=== PATIENT | female | born 1975 | race Caucasian/White ===

== ENCOUNTER 2018-03-31 10:16 | Emergency (ER) | payer MEDICAID ==
[~2018-03-31] VITALS: Ht 157.5 cm; Wt 82.3 kg
[2018-03-31 11:33] LABS: BASOPHILS % 0.5 % (0.0-2.0); EOSINOPHILS % 5.6 % (0.0-5.0); HEMATOCRIT. 37.6 % (36.0-48.0); HEMOGLOBIN. 12.6 g/dL (12.0-16.0); LYMPHOCYTES % 23.2 % (20.0-50.0); MEAN CORPUSCULAR HEMOGLOBIN 27.8 pg (28.0-32.0); MEAN CORPUSCULAR VOLUME 82.9 fL (81.0-99.0); MEAN PLATELET VOLUME 7.9 fl (7.4-10.4); MONOCYTES % 6.3 % (2.0-8.0); NEUTROPHILS % 64.4 % (40.0-76.0); PLATELET 351 x1000/uL (130-400); RED BLOOD CELL COUNT 4.54 mill/uL (4.2-5.4); RED CELL DISTRIBUTION WIDTH 14.3 % (11.6-14.6)
[2018-03-31 11:34] LABS: CHLORIDE 105 mEq/L (98-107)
[2018-03-31 11:41] LABS: D-DIMER 0.3 mg/L FEU (<0.50); PROTHROMBIN TIME 10.3 sec (9.4-11.6)
[2018-03-31 15:43] VITALS: BP 124/68
== END 2018-03-31 15:44 | disposition home or self-care (01) ==
LOC: ER 10:16
DX: M79.89 Other specified soft tissue disorders (principal); R00.2 Palpitations; F17.200 Nicotine dependence, unspecified, uncomplicated
CPT/HCPCS: 36415; 71045; 80053; 83880; 84484; 85025; 85379; 85610; 93005; 93970; 99285; Z7610

== ENCOUNTER 2019-08-27 14:20 | Inpatient (IN) | payer MEDICAID ==
[~2019-08-27] VITALS: Ht 160 cm; Wt 83.9 kg
[2019-08-27] MEDS ORDERED: ONDANSETRON HCL 4MG/2ML INJ IV STA (22:22)
[2019-08-27] MEDS ORDERED: KETOROLAC 30MG/ML VIAL IV STA (22:22)
[2019-08-27] MEDS ORDERED: PIPERACILLIN/TAZ 3.375G PREMIX 50 ML IV ONE (22:30)
[2019-08-27] MEDS ORDERED: SODIUM CHLORIDE 0.9% 1000ML BAG (SEPSIS BOLUS) IV ONE (22:30)
[2019-08-27] MEDS ORDERED: VANCOMYCIN 1 G PREMIX 200 ML IV ONE (22:30)
[2019-08-27 23:16] LABS: BASOPHILS % 0.5 % (0.0-2.0); EOSINOPHILS % 0.8 % (0.0-5.0); HEMATOCRIT. 43.3 % (36.0-48.0); HEMOGLOBIN. 14.1 g/dL (12.0-16.0); LYMPHOCYTES % 14.8 % (20.0-50.0); MEAN CORPUSCULAR HEMOGLOBIN 27.1 pg (28.0-32.0); MEAN PLATELET VOLUME 7.3 fl (7.4-10.4); NEUTROPHILS % 81.9 % (40.0-76.0); PLATELET 346 x1000/uL (130-400); RED BLOOD CELL COUNT 5.22 mill/uL (4.2-5.4); RED CELL DISTRIBUTION WIDTH 13.4 % (11.6-14.6)
[2019-08-27 23:22] LABS: CHLORIDE 102 mEq/L (98-107)
[2019-08-27 23:23] LABS: PROTHROMBIN TIME 10.5 sec (9.6-11.0)
[2019-08-28 04:07] LABS: CLARITY URINE CLOUDY (CLEAR); COLOR URINE YELLOW (YELLOW); KETONES URINE NEGATIVE (NEGATIVE); LEUKOCYTE ESTERASE URINE 2+ (NEGATIVE); NITRITE URINE NEGATIVE (NEGATIVE); OCCULT BLOOD URINE NEGATIVE (NEGATIVE); PROTEIN URINE TRACE (NEGATIVE); SPECIFIC GRAVITY URINE 1.021 (1.005-1.030)
[2019-08-28 08:38] VITALS: BP 113/71
[2019-08-28 09:07] VITALS: BP 113/71
[2019-08-28] MEDS ORDERED: SYN200 MT (10:49)
[2019-08-28] MEDS ORDERED: SYN175 MT (10:49)
[2019-08-28] MEDS ORDERED: IPRATROPIUM/ALBUTEROL 0.5-3(2.5)MG/3ML NEB HHN PRN (11:15)
[2019-08-28] MEDS ORDERED: CEFAZOLIN 1000MG PREMIX 50 ML IV SCH ×2 (11:15→14:00)
[2019-08-28] MEDS ORDERED: CLONIDINE 0.1MG TABLET PO PRN (11:15)
[2019-08-28] MEDS ORDERED: HYDROCODONE/ACETAMINOPHEN 5/325MG TABLET PO PRN (11:15)
[2019-08-28] MEDS ORDERED: ACETAMINOPHEN 325MG TABLET PO PRN (11:15)
[2019-08-28] MEDS ORDERED: GUAIFENESIN 200MG/10ML SUGAR FREE UDC PO PRN (11:15)
[2019-08-28] MEDS ORDERED: LORAZEPAM 0.5MG TABLET PO PRN (11:15)
[2019-08-28] MEDS ORDERED: DOCUSATE SODIUM 100MG CAPSULE PO PRN (11:15)
[2019-08-28] MEDS ORDERED: ONDANSETRON HCL 4MG/2ML INJ IV PRN (11:15)
[2019-08-28] MEDS: SODIUM CHLORIDE 0.9% 1,000 ML IV SCH (11:45)
[2019-08-28] MEDS: ENOXAPARIN 40MG/0.4ML SYR SUBCUT SCH (11:47)
[2019-08-28 12:00] VITALS: BP 112/71
[2019-08-28] MEDS ORDERED: POTASSIUM CHLORIDE 20MEQ TABLET SR PO SCH (12:00)
[2019-08-28 14:47] LABS: *COCAINE SCREEN URINE NEGATIVE (NEGATIVE)
[2019-08-28 14:48] LABS: OPIATES URINE SCREEN NEGATIVE (NEGATIVE); PHENCYCLIDINE URINE SCREEN NEGATIVE (NEGATIVE)
[2019-08-28 14:49] LABS: METHADONE URINE SCREEN NEGATIVE (NEGATIVE)
[2019-08-28 14:54] LABS: *BENZODIAZEPINES SCREEN URINE NEGATIVE (NEGATIVE)
[2019-08-28 14:55] LABS: *BARBITURATES SCREEN URINE NEGATIVE (NEGATIVE)
[2019-08-28 15:31] LABS: *AMPHETAMINES SCREEN URINE PRESUMTIVE POSITIVE (NEGATIVE); CANNABINOID URINE SCREEN PRESUMTIVE POSITIVE (NEGATIVE)
[2019-08-28 16:00] VITALS: BP 118/75
[2019-08-28 20:00] VITALS: BP 110/70
[2019-08-28] MEDS: VANCOMYCIN 1250MG in DEXTROSE 5% WATER 250ML IV SCH (20:46)
[2019-08-28] MEDS: MORPHINE SULFATE 2 MG/ML CPJ (NOT FOR IM USE) IV PRN (21:02)
[2019-08-29] VITALS: BP 110/69
[2019-08-29 04:00] VITALS: BP 113/70
[2019-08-29] MEDS: VANCOMYCIN 1250MG in DEXTROSE 5% WATER 250ML IV SCH (05:25)
[2019-08-29 08:00] VITALS: BP 106/71
[2019-08-29] MEDS: ENOXAPARIN 40MG/0.4ML SYR SUBCUT SCH (08:43)
[2019-08-29 11:18] LABS: BASOPHILS % 0.3 % (0.0-2.0); EOSINOPHILS % 3.2 % (0.0-5.0); HEMATOCRIT. 40.5 % (36.0-48.0); LYMPHOCYTES % 11.8 % (20.0-50.0); MEAN CORPUSCULAR HEMOGLOBIN 26.6 pg (28.0-32.0); MEAN CORPUSCULAR VOLUME 82.5 fL (81.0-99.0); MEAN PLATELET VOLUME 7.4 fl (7.4-10.4); MONOCYTES % 4.2 % (2.0-8.0); NEUTROPHILS % 80.5 % (40.0-76.0); PLATELET 346 x1000/uL (130-400); RED BLOOD CELL COUNT 4.91 mill/uL (4.2-5.4); RED CELL DISTRIBUTION WIDTH 13.6 % (11.6-14.6)
[2019-08-29 12:00] VITALS: BP 111/71
[2019-08-29] MEDS: SODIUM CHLORIDE 0.9% 1,000 ML IV SCH (12:50)
[2019-08-29] MEDS ORDERED: NICOTINE 7MG PATCH TD SCH (13:00)
[2019-08-29 13:17] LABS: HEPATITIS B SURFACE ANTIGEN NEGATIVE
[2019-08-29 13:45] LABS: HEPATITIS A AB IGM NEGATIVE (NEGATIVE)
[2019-08-29] MEDS: LEVOTHYROXINE SODIUM 175MCG TABLET PO SCH (15:37)
[2019-08-29] MEDS: NICOTINE 7MG PATCH TD SCH (15:37)
[2019-08-29] MEDS: MORPHINE SULFATE 2 MG/ML CPJ (NOT FOR IM USE) IV PRN (15:38)
[2019-08-29 16:00] VITALS: BP 116/64
[2019-08-29 16:31] LABS: BASOPHILS % 0.3 % (0.0-2.0); EOSINOPHILS % 4.4 % (0.0-5.0); HEMOGLOBIN. 12.7 g/dL (12.0-16.0); LYMPHOCYTES % 15.3 % (20.0-50.0); MEAN CORPUSCULAR HEMOGLOBIN 26.9 pg (28.0-32.0); MEAN CORPUSCULAR VOLUME 82.6 fL (81.0-99.0); MEAN PLATELET VOLUME 7.8 fl (7.4-10.4); MONOCYTES % 5.7 % (2.0-8.0); NEUTROPHILS % 74.3 % (40.0-76.0); PLATELET 340 x1000/uL (130-400); RED BLOOD CELL COUNT 4.72 mill/uL (4.2-5.4); RED CELL DISTRIBUTION WIDTH 13.2 % (11.6-14.6)
[2019-08-29 17:08] LABS: HCG SCREEN NEGATIVE
[2019-08-29 20:00] VITALS: BP 140/71
[2019-08-29] MEDS ORDERED: VANCOMYCIN 1250MG in DEXTROSE 5% WATER 250ML IV SCH (21:00)
[2019-08-30] VITALS: BP 114/74
[2019-08-30 04:00] VITALS: BP 110/77
[2019-08-30] MEDS: SODIUM CHLORIDE 0.9% 1,000 ML IV SCH (04:30)
[2019-08-30 06:11] LABS: HIV SCREEN 4G Non Reactive (Non Reactive)
[2019-08-30 08:00] VITALS: BP 112/74
[2019-08-30] MEDS: ENOXAPARIN 40MG/0.4ML SYR SUBCUT SCH (11:04)
[2019-08-30] MEDS: LEVOTHYROXINE SODIUM 175MCG TABLET PO SCH (11:05)
[2019-08-30] MEDS: NICOTINE 7MG PATCH TD SCH (11:05)
[2019-08-30 12:00] VITALS: BP 109/72
[2019-08-30] MEDS: MORPHINE SULFATE 2 MG/ML CPJ (NOT FOR IM USE) IV PRN (13:54)
[2019-08-30 16:00] VITALS: BP 119/79
[2019-08-30] MEDS: VANCOMYCIN 1 G PREMIX 200 ML IV SCH (19:00)
[2019-08-30 20:00] VITALS: BP 110/76
[2019-08-31] VITALS: BP 111/73
[2019-08-31 04:00] VITALS: BP 109/75
[2019-08-31 08:00] VITALS: BP 116/77
[2019-08-31 08:06] LABS: BASOPHILS % 0.5 % (0.0-2.0); HEMATOCRIT. 37.9 % (36.0-48.0); HEMOGLOBIN. 12.5 g/dL (12.0-16.0); LYMPHOCYTES % 20.2 % (20.0-50.0); MEAN CORPUSCULAR HEMOGLOBIN 26.9 pg (28.0-32.0); MEAN CORPUSCULAR VOLUME 81.2 fL (81.0-99.0); MEAN PLATELET VOLUME 7.5 fl (7.4-10.4); MONOCYTES % 7.4 % (2.0-8.0); NEUTROPHILS % 67.9 % (40.0-76.0); PLATELET 378 x1000/uL (130-400); RED BLOOD CELL COUNT 4.66 mill/uL (4.2-5.4); RED CELL DISTRIBUTION WIDTH 13.1 % (11.6-14.6)
[2019-08-31] MEDS: ENOXAPARIN 40MG/0.4ML SYR SUBCUT SCH (09:50)
[2019-08-31] MEDS: LEVOTHYROXINE SODIUM 175MCG TABLET PO SCH (09:50)
[2019-08-31] MEDS: NICOTINE 7MG PATCH TD SCH (09:50)
[2019-08-31 12:00] VITALS: BP 122/77
[2019-08-31] MEDS ORDERED: DOXY100C2 MT (13:11)
[2019-08-31] MEDS ORDERED: AMOX-424 MT (13:11)
[2019-08-31] MEDS: SODIUM CHLORIDE 0.9% 1,000 ML IV SCH (13:45)
[2019-08-31] MEDS: VANCOMYCIN 1 G PREMIX 200 ML IV SCH (13:45)
[2019-08-31 15:08] VITALS: BP 122/77
[2019-08-31 16:00] VITALS: BP 134/84
== END 2019-08-31 15:58 | disposition home or self-care (01) | DRG 720 ==
LOC: ER 16:42 → EDBEDREQ 22:28 → EDBEDREQSVC 08-28 00:37 → EDBEDREQTM 08-28 00:37 → EDBEDREQDT 08-28 00:37 → EDBEDREQ 08-28 00:37 → ENRESERV 08-28 07:38 → 6EST 08-28 08:20
PROVIDERS: ADMIT Internal Medicine; ATTEND Internal Medicine
DX: A41.9 Sepsis, unspecified organism (principal); D70.9 Neutropenia, unspecified; L02.415 Cutaneous abscess of right lower limb; L03.115 Cellulitis of right lower limb; E07.9 Disorder of thyroid, unspecified; E66.9 Obesity, unspecified; E87.6 Hypokalemia; F15.10 Other stimulant abuse, uncomplicated; F12.10 Cannabis abuse, uncomplicated; F17.200 Nicotine dependence, unspecified, uncomplicated; K80.20 Calculus of gallbladder without cholecystitis without obstruction; Z79.2 Long term (current) use of antibiotics; Z79.899 Other long term (current) drug therapy; Z68.32 Body mass index [BMI] 32.0-32.9, adult
CPT/HCPCS: 36415; 71045; 73700; 74021; 76700; 80048; 80053; 80061; 80202; 80305; 81003; 83036; 83605; 84145; 84484; 84703; 85025; 85651; 86141; 86705; 86709; 86803; 87340; 87389; 93005; 96365; 96366; 96375; 99291; J0690; J1650; J1885; J2270; J2405; J2543; J3370; J7030; J7060

== ENCOUNTER 2020-04-17 23:45 | Emergency (ER) | payer MEDICAID ==
[~2020-04-17] VITALS: Ht 162.6 cm; Wt 85.6 kg
[~2020-04-17 23:45] MED LIST: AMOX-424 MT; DOXY100C2 MT; SYN175 MT; SYN200 MT
[2020-04-18 02:17] VITALS: BP 142/85
== END 2020-04-18 02:18 | disposition home or self-care (01) ==
LOC: ER 23:45
DX: L03.115 Cellulitis of right lower limb (principal); E05.90 Thyrotoxicosis, unspecified without thyrotoxic crisis or storm; E05.00 Thyrotoxicosis with diffuse goiter without thyrotoxic crisis or storm
CPT/HCPCS: 99281

== ENCOUNTER 2021-11-02 23:32 | Emergency (ER) | payer MEDICAID, OTHER ==
[~2021-11-02] VITALS: Ht 154.9 cm; Wt 84.0 kg
[~2021-11-02 23:32] MED LIST changes: -DOXY100C2 MT; +DOXY100C5 MT
[2021-11-03 02:43] LABS: BASOPHILS % 0.6 % (0.0-2.0); HEMATOCRIT. 39.3 % (36.0-48.0); HEMOGLOBIN. 13.4 g/dL (12.0-16.0); LYMPHOCYTES % 32.6 % (20.0-50.0); MEAN CORPUSCULAR HEMOGLOBIN 27.4 pg (28.0-32.0); MEAN CORPUSCULAR VOLUME 80.8 fL (81.0-99.0); MEAN PLATELET VOLUME 7.6 fl (7.4-10.4); MONOCYTES % 6.3 % (2.0-8.0); NEUTROPHILS % 53.5 % (40.0-76.0); PLATELET 372 x1000/uL (130-400); RED BLOOD CELL COUNT 4.87 mill/uL (4.2-5.4)
[2021-11-03 02:48] LABS: CHLORIDE 104 mEq/L (98-107)
[2021-11-03 03:15] VITALS: BP 145/90
[2021-11-03] MEDS ORDERED: IBUP-2028 MT (03:42)
[2021-11-03] MEDS ORDERED: BENZ-16 MT (03:42)
== END 2021-11-03 03:59 | disposition home or self-care (01) ==
LOC: ER 23:32
DX: R09.1 Pleurisy (principal); R07.89 Other chest pain; E05.90 Thyrotoxicosis, unspecified without thyrotoxic crisis or storm; Z86.16 Personal history of COVID-19
CPT/HCPCS: 36415; 71045; 80048; 84484; 85025; 93005; 99285

== ENCOUNTER 2021-11-28 19:52 | Inpatient (IN) | payer OTHER ==
[~2021-11-28] VITALS: Ht 154.9 cm; Wt 82.6 kg
[~2021-11-28 19:52] MED LIST changes: +BENZ-16 MT; +DOXY100T2 MT; +IBUP-2028 MT; +LEVO500T89 MT; -SYN200 MT
[2021-11-28] MEDS ORDERED: HYDROCODONE/ACETAMINOPHEN 5/325MG TABLET PO STA (22:35)
[2021-11-28] MEDS ORDERED: PIPERACILLIN/TAZ 3.375G PREMIX 50 ML IV ONE (22:45)
[2021-11-28] MEDS ORDERED: VANCOMYCIN 1G PREMIX 200 ML IV ONE (22:45)
[2021-11-28 23:24] LABS: BASOPHILS % 0.5 % (0.0-2.0); EOSINOPHILS % 5.4 % (0.0-5.0); HEMATOCRIT. 36.8 % (36.0-48.0); HEMOGLOBIN. 12.3 g/dL (12.0-16.0); LYMPHOCYTES % 33.8 % (20.0-50.0); MEAN CORPUSCULAR HEMOGLOBIN 27.3 pg (28.0-32.0); MEAN CORPUSCULAR VOLUME 81.3 fL (81.0-99.0); MEAN PLATELET VOLUME 7.5 fl (7.4-10.4); MONOCYTES % 6.9 % (2.0-8.0); NEUTROPHILS % 53.4 % (40.0-76.0); PLATELET 463 x1000/uL (130-400); RED BLOOD CELL COUNT 4.52 mill/uL (4.2-5.4); RED CELL DISTRIBUTION WIDTH 14.8 % (11.6-14.6)
[2021-11-28 23:34] LABS: CHLORIDE 109 mEq/L (98-107)
[2021-11-29] MEDS ORDERED: HYDROCODONE/ACETAMINOPHEN 5/325MG TABLET PO NR (03:30)
[2021-11-29] MEDS ORDERED: PIPERACILLIN/TAZ 3.375G PREMIX 50 ML IV NR (03:30)
[2021-11-29 04:25] LABS: CLARITY URINE CLEAR (CLEAR); COLOR URINE YELLOW (YELLOW); KETONES URINE NEGATIVE (NEGATIVE); LEUKOCYTE ESTERASE URINE NEGATIVE (NEGATIVE); NITRITE URINE NEGATIVE (NEGATIVE); OCCULT BLOOD URINE NEGATIVE (NEGATIVE); PH URINE 5.5 (4.5-8.0); PROTEIN URINE NEGATIVE (NEGATIVE); SPECIFIC GRAVITY URINE 1.018 (1.005-1.030); UROBILINOGEN URINE 0.2 E.U./dL (0.2-1.0)
[2021-11-29] MEDS ORDERED: MORPHINE SULFATE 2 MG/ML CPJ (NOT FOR IM USE) IV NR (04:30)
[2021-11-29] MEDS ORDERED: HYDROCODONE/ACETAMINOPHEN 5/325MG TABLET PO PRN (09:00)
[2021-11-29] MEDS ORDERED: CEFTRIAXONE 1 G PREMIX 50 ML IV SCH (09:33)
[2021-11-29 10:00] VITALS: BP 121/76
[2021-11-29] MEDS ORDERED: VANCOMYCIN 750 MG in DEXT 5% WATER 250 ML IV SCH (12:00)
[2021-11-29] MEDS: CEFTRIAXONE 1,000 MG in DEXTROSE 5% WATER 50 ML IV SCH (16:58)
[2021-11-29] MEDS: VANCOMYCIN 750 MG in DEXT 5% WATER 250 ML IV SCH (17:30)
[2021-11-29] MEDS: KETOROLAC 30MG/ML VIAL IV PRN (18:40)
[2021-11-29 20:00] VITALS: BP 135/66
[2021-11-29] MEDS ORDERED: *PATIENT'S OWN MEDICATION STORAGE XX SCH (21:45)
[2021-11-30] VITALS: BP 127/68
[2021-11-30] MEDS: KETOROLAC 30MG/ML VIAL IV PRN ×2 (00:58→21:18)
[2021-11-30] MEDS: VANCOMYCIN 750 MG in DEXT 5% WATER 250 ML IV SCH ×2 (03:07→17:00)
[2021-11-30 04:00] VITALS: BP 129/68
[2021-11-30] MEDS: CEFTRIAXONE 1,000 MG in DEXTROSE 5% WATER 50 ML IV SCH (15:25)
[2021-11-30 16:00] VITALS: BP 141/90
[2021-11-30 20:00] VITALS: BP 121/70
[2021-11-30] MEDS ORDERED: LINE600T14 MT (20:11)
[2021-12-01] VITALS: BP 141/65
[2021-12-01 02:44] LABS: CHLORIDE 106 mEq/L (98-107)
[2021-12-01] MEDS: VANCOMYCIN 750 MG in DEXT 5% WATER 250 ML IV SCH (03:30)
[2021-12-01] MEDS: KETOROLAC 30MG/ML VIAL IV PRN (03:49)
[2021-12-01 04:00] VITALS: BP 127/77
[2021-12-01 06:36] VITALS: BP 133/78
== END 2021-12-01 07:30 | disposition home or self-care (01) | DRG 383 ==
LOC: ER 19:52 → 6EST 11-29 00:23 → EDBEDREQ 11-29 00:27 → EDBEDREQTM 11-29 00:27 → EDBEDREQDT 11-29 00:27 → ENRESERV 11-29 07:29
PROVIDERS: ADMIT Internal Medicine; ATTEND Internal Medicine
DX: L03.115 Cellulitis of right lower limb (principal); E05.90 Thyrotoxicosis, unspecified without thyrotoxic crisis or storm; E66.9 Obesity, unspecified; F15.90 Other stimulant use, unspecified, uncomplicated; F17.200 Nicotine dependence, unspecified, uncomplicated; Z68.34 Body mass index [BMI] 34.0-34.9, adult; Z79.2 Long term (current) use of antibiotics; Z79.899 Other long term (current) drug therapy; Z71.51 Drug abuse counseling and surveillance of drug abuser
CPT/HCPCS: 36415; 71045; 80048; 80053; 80202; 81003; 83605; 84145; 84484; 85025; 87077; 87186; 93005; 93971; 99285; J0696; J1885; J2270; J2543; J3370; J7060

== ENCOUNTER 2023-04-20 16:07 | Emergency (ER) | payer MEDICAID ==
[~2023-04-20] VITALS: Ht 162.6 cm; Wt 81.0 kg
[~2023-04-20 16:07] MED LIST changes: -AMOX-424 MT; +AMOX1TAB16 MT; +AMOX1TAB16 PO; -DOXY100C5 MT; -DOXY100T2 MT; -LEVO500T89 MT; +LINE600T14 MT; +LINE600T14 PO; +SULF-13 MT
[2023-04-20 16:34] VITALS: O2SAT 100
[2023-04-20 17:09] VITALS: BP 135/86; PULSE 87; RESP 20; TEMP 97.9
== END 2023-04-20 17:10 | disposition home or self-care (01) ==
LOC: ER 16:40
DX: Z00.00 Encounter for general adult medical examination without abnormal findings (principal); L03.115 Cellulitis of right lower limb; Z86.39 Personal history of other endocrine, nutritional and metabolic disease
CPT/HCPCS: 99281

== ENCOUNTER 2023-12-14 21:14 | Emergency (ER) | payer MEDICAID ==
[~2023-12-14] VITALS: Ht 157.5 cm; Wt 91.0 kg
[2023-12-14 21:55] VITALS: O2SAT 96
[2023-12-14] MEDS: ACETAMINOPHEN 325MG TABLET PO ONE (23:52)
[2023-12-15] MEDS ORDERED: IBUP-2029 MT (01:50)
[2023-12-15 02:03] VITALS: BP 142/83; PULSE 75; RESP 16; TEMP 98.1
== END 2023-12-15 02:10 | disposition home or self-care (01) ==
LOC: ER 21:14
DX: S00.83XA Contusion of other part of head, initial encounter (principal); E03.9 Hypothyroidism, unspecified; X58.XXXA Exposure to other specified factors, initial encounter; Y93.89 Activity, other specified; Y92.89 Other specified places as the place of occurrence of the external cause; Y99.8 Other external cause status
CPT/HCPCS: 99284; 70450; 70486; Z7610 ×2

== ENCOUNTER 2024-05-03 23:11 | Emergency (ER) | payer MEDICAID ==
[~2024-05-03] VITALS: Ht 157.5 cm; Wt 85.0 kg
[~2024-05-03 23:11] MED LIST changes: +IBUP-2029 MT
[2024-05-03 23:44] VITALS: O2SAT 96
[2024-05-04] MEDS: CEPHALEXIN 250MG CAPSULE PO ONE (03:26)
[2024-05-04] MEDS: ACETAMINOPHEN 325MG TABLET PO ONE (03:26)
[2024-05-04] MEDS ORDERED: ACET-2708 MT (03:42)
[2024-05-04] MEDS ORDERED: CEPH500C2 MT (03:42)
[2024-05-04 04:32] VITALS: BP 149/98; PULSE 83; RESP 20; TEMP 36.55848; O2SAT 98
[2024-05-17] MEDS ORDERED: DOXY100C5 MT (10:41)
[2024-05-17] MEDS ORDERED: ATOR20TA MT (10:41)
== END 2024-05-04 04:39 | disposition home or self-care (01) ==
LOC: ER 23:19
DX: L03.115 Cellulitis of right lower limb (principal); Z13.9 Encounter for screening, unspecified; Z79.899 Other long term (current) drug therapy; Z98.890 Other specified postprocedural states
CPT/HCPCS: 99284; 93971; Z7610 ×2

== ENCOUNTER 2024-05-07 09:21 | Emergency (ER) | payer MEDICAID ==
[~2024-05-07] VITALS: Ht 165.1 cm; Wt 100.0 kg
[~2024-05-07 09:21] MED LIST changes: +ACET-2708 MT; +CEPH500C2 MT
[2024-05-07 09:33] VITALS: TEMP 98.5; O2SAT 98
[2024-05-07] MEDS ORDERED: IBUP-2028 MT (10:18)
[2024-05-07] MEDS ORDERED: CEPH500C2 MT (10:18)
[2024-05-07 10:45] VITALS: BP 145/105; PULSE 103; RESP 18
[2024-05-07] MEDS: CEPHALEXIN 250MG CAPSULE PO STA (10:45)
[2024-05-07] MEDS: IBUPROFEN 600MG TABLET PO ONE (10:45)
== END 2024-05-07 10:50 | disposition home or self-care (01) ==
LOC: ER 09:36
DX: Z76.0 Encounter for issue of repeat prescription (principal); E03.9 Hypothyroidism, unspecified; Z98.890 Other specified postprocedural states; Z79.899 Other long term (current) drug therapy
CPT/HCPCS: 99283